=== PATIENT | female | born 1995 | race Caucasian/White ===

== ENCOUNTER 2018-04-27 18:14 | Emergency (ER) | payer SELFPAY ==
[2018-04-27 18:19] VITALS: RESP 16
[2018-04-27] MEDS ORDERED: ONDANSETRON 4 MG/2 ML VIAL IVP STA (19:00)
[2018-04-27] MEDS ORDERED: SODIUM CHLORIDE 0.9% 1,000 ML IV STA ×2 (19:00→21:47)
[2018-04-27 19:55] LABS: Basophils % (A) 0 %; Eosinophils # (A) 0.1 k/uL (0-0.7); Eosinophils % (A) 1 %; HCT 43.6 % (34.0-46.0); HGB 14.3 gm/dL (11.4-16.0); Lymphocytes # (A) 0.6 k/uL (1.0-4.8); Lymphocytes % (A) 7 %; MCH 31.9 pg (25.0-35.0); MCHC 32.8 g/dL (31.0-37.0); MCV 97.2 fL (80.0-100.0); Mean Platelet Volume 7.7; Monocytes # (A) 0.4 k/uL (0-1.0); Monocytes % (A) 4 %; Neutrophils # (A) 7.5 k/uL (1.3-7.7); Neutrophils % (A) 87 %; Platelet Count 138 k/uL (150-450); RBC 4.49 m/uL (3.80-5.40); RDW 13.2 % (11.5-15.5); WBC 8.6 k/uL (4.0-11.0)
[2018-04-27 20:46] LABS: Appearance,Urine Cloudy (Clear); Bacteria,Urine Rare /hpf; Bilirubin,Urine Negative (Negative); Blood,Urine Negative (Negative); Color,Urine Yellow; Glucose,Urine (UA) Negative (Negative); Hyaline Casts,Urine 3 /lpf (0-2); Ketones,Urine 4+ (Negative); Leukocyte Esterase,Urine Negative (Negative); Mucus,Urine Occasional /hpf; Nitrite,Urine Negative (Negative); PH, Urine 5.5 (5.0-8.0); Protein,Urine 1+ (Negative); RBC,Urine 1 /hpf (0-5); Specific Gravity,Urine 1.026 (1.001-1.035); Squamous Epithelial Cell,Urine 10 /hpf (0-4); Urobilinogen,Urine <2.0 mg/dL (<2.0); WBC,Urine 5 /hpf (0-5)
--- NOTE | 2018-04-27 21:04 | ED ---
General Adult HPI - General Chief complaint: Nausea/Vomiting/Diarrhea Stated complaint: vomiting Time Seen by Provider: 04/27/18 18:56 Source: patient, RN notes reviewed Mode of arrival: ambulatory Limitations: no limitations - History of Present Illness Initial comments: 22-year-old female presents to the emergency department for a chief complaint of nausea and vomiting 12 hours. Patient states she woke up this morning and felt nauseous. Patient states she has vomited about 15 times. She states she has not been able to keep down solids but has been drinking Gatorade without difficulty. Patient denies any abdominal pain. Patient denies any pain with urination or urinary frequency. Patient denies any fevers or chills at home. Patient does not recall eating anything questionable. Patient denies any medical history. Patient denies any abdominal surgeries. Patient states she last had a normal bowel movement 2 days ago. Patient denies any chance of . Patient has no other complaints at this time including shortness of breath, chest pain, abdominal pain, nausea or vomiting, headache, or visual changes. - Related Data Previous Rx's Medication Instructions Recorded Ondansetron [Zofran ODT] 4 mg PO Q8HR PRN #15 tab 04/27/18 Allergies Allergy/AdvReac Type Severity Reaction Status Date / Time No Known Allergies Allergy Verified 04/27/18 18:19 Review of Systems ROS Statement: Those systems with pertinent positive or pertinent negative responses have been documented in the HPI. ROS Other: All systems not noted in ROS Statement are negative. Past Medical History Past Medical History: No Reported History History of Any Multi-Drug Resistant Organisms: None Reported Past Surgical History: No Surgical Hx Reported Past Psychological History: No Psychological Hx Reported Smoking Status: Never smoker Past Alcohol Use History: Occasional Past Drug Use History: None Reported General Exam Limitations: no limitations General appearance: alert, in no apparent distress Head exam: Present: atraumatic, normocephalic, normal inspection Eye exam: Present: normal appearance. Absent: scleral icterus, conjunctival injection ENT exam: Present: normal exam, mucous membranes moist Neck exam: Present: normal inspection, full ROM. Absent: tenderness, meningismus, lymphadenopathy Respiratory exam: Present: normal lung sounds bilaterally. Absent: respiratory distress, wheezes, rales, rhonchi, stridor Cardiovascular Exam: Present: regular rate, normal rhythm, normal heart sounds. Absent: systolic murmur, diastolic murmur, rubs, gallop, clicks GI/Abdominal exam: Present: soft, normal bowel sounds, other (Negative obturator and psoas signs, negative Moore sign). Absent: distended, tenderness (No tenderness to palpation), guarding, rebound, rigid Neurological exam: Present: alert, oriented X3, CN II-XII intact Psychiatric exam: Present: normal affect, normal mood Skin exam: Present: warm, dry, intact, normal color. Absent: rash Course Vital Signs 04/27/18 04/27/18 18:15 21:21 Temperature 98.3 F 97.8 F Pulse Rate 91 92 Respiratory 16 16 Rate Blood Pressure 110/71 107/61 O2 Sat by Pulse 100 100 Oximetry Medical Decision Making - Medical Decision Making 22-year-old female presents to the emergency department for chief complaint of vomiting 12 hours. Patient is drinking Gatorade in the emergency department. Vitals are stable. Patient is afebrile and denies fevers at home. Vitals are stable. On exam patient does not have any abdominal tenderness. Denies any abdominal pain. Patient last had a normal bowel movement 2 days ago. On exam patient is well-appearing and does not appear toxic. No abdominal tenderness. No CVA tenderness or complaints of dysuria. X-ray was ordered to rule out obstruction/ X-ray showed no acute intra-abdominal abdominal pelvic process. CBC unremarkable. CMP did show an anion gap of 17 with an elevated BUNs likely related to starvation ketosis and dehydration. Patient also had urine ketones 4 + which is also likely related. No evidence of infection. HCG negative. Total bili 1.8, AST 52. Ultrasound of gallbladder was ordered which demonstrated no gallstones or dilated ducts. Patient's glucose was 65 and was given an amp of dextrose. Patient was given a liter of fluids as well. Patient also given Zofran. On reevaluation patient is feeling much better. She is drinking Gatorade and eating pudding and a sandwich. She states nausea has resolved at this time. She will follow up with primary care in 1-2 days. She will return to the emergency Department if she has any worsening symptoms or develops fevers. - Lab Data Result diagrams: 04/27/18 19:44 04/27/18 20:40 Lab Results 04/27/18 04/27/18 04/27/18 Range/Units 19:44 20:26 20:26 WBC 8.6 (4.0-11.0) k/uL RBC 4.49 (3.80-5.40) m/uL Hgb 14.3 (11.4-16.0) gm/dL Hct 43.6 (34.0-46.0) % MCV 97.2 (80.0-100.0) fL MCH 31.9 (25.0-35.0) pg MCHC 32.8 (31.0-37.0) g/dL RDW 13.2 (11.5-15.5) % Plt Count 138 L (150-450) k/uL Neutrophils % 87 % Lymphocytes % 7 % Monocytes % 4 % Eosinophils % 1 % Basophils % 0 % Neutrophils # 7.5 (1.3-7.7) k/uL Lymphocytes # 0.6 L (1.0-4.8) k/uL Monocytes # 0.4 (0-1.0) k/uL Eosinophils # 0.1 (0-0.7) k/uL Basophils # 0.0 (0-0.2) k/uL Sodium (137-145) mmol/L Potassium (3.5-5.1) mmol/L Chloride (98-107) mmol/L Carbon Dioxide (22-30) mmol/L Anion Gap mmol/L BUN (7-17) mg/dL Creatinine (0.52-1.04) mg/dL Est GFR (CKD-EPI)AfAm (>60 ml/min/1.73 sqM) Est GFR (CKD-EPI)NonAf (>60 ml/min/1.73 sqM) Glucose (74-99) mg/dL POC Glucose (mg/dL) (75-99) mg/dL POC Glu Principal Developer ID Calcium (8.4-10.2) mg/dL Total Bilirubin (0.2-1.3) mg/dL AST (14-36) U/L ALT (9-52) U/L Alkaline Phosphatase (38-126) U/L Total Protein (6.3-8.2) g/dL Albumin (3.5-5.0) g/dL Amylase (30-110) U/L Lipase (23-300) U/L Urine Color Yellow Urine Appearance Cloudy H (Clear) Urine pH 5.5 (5.0-8.0) Ur Specific [place] 1.026 (1.001-1.035) Urine Protein 1+ H (Negative) Urine Glucose (UA) Negative (Negative) Urine Ketones 4+ H (Negative) Urine Blood Negative (Negative) Urine Nitrite Negative (Negative) Urine Bilirubin Negative (Negative) Urine Urobilinogen <2.0 (<2.0) mg/dL Ur Leukocyte Esterase Negative (Negative) Urine RBC 1 (0-5) /hpf Urine WBC 5 (0-5) /hpf Ur Squamous Epith Cells 10 H (0-4) /hpf Urine Bacteria Rare H (None) /hpf Hyaline Casts 3 H (0-2) /lpf Urine Mucus Occasional H (None) /hpf Urine HCG, Qual Not Detected (Not Detectd) 04/27/18 04/27/18 Range/Units 20:40 22:38 WBC (4.0-11.0) k/uL RBC (3.80-5.40) m/uL Hgb (11.4-16.0) gm/dL Hct (34.0-46.0) % MCV (80.0-100.0) fL MCH (25.0-35.0) pg MCHC (31.0-37.0) g/dL RDW (11.5-15.5) % Plt Count (150-450) k/uL Neutrophils % % Lymphocytes % % Monocytes % % Eosinophils % % Basophils % % Neutrophils # (1.3-7.7) k/uL Lymphocytes # (1.0-4.8) k/uL Monocytes # (0-1.0) k/uL Eosinophils # (0-0.7) k/uL Basophils # (0-0.2) k/uL Sodium 139 (137-145) mmol/L Potassium 4.0 (3.5-5.1) mmol/L Chloride 102 (98-107) mmol/L Carbon Dioxide 20 L (22-30) mmol/L Anion Gap 17 mmol/L BUN 23 H (7-17) mg/dL Creatinine 0.60 (0.52-1.04) mg/dL Est GFR (CKD-EPI)AfAm >90 (>60 ml/min/1.73 sqM) Est GFR (CKD-EPI)NonAf >90 (>60 ml/min/1.73 sqM) Glucose 62 L (74-99) mg/dL POC Glucose (mg/dL) 65 L (75-99) mg/dL POC Glu Principal Developer ID [employer] Calcium 9.6 (8.4-10.2) mg/dL Total Bilirubin 1.8 H (0.2-1.3) mg/dL AST 52 H (14-36) U/L ALT 40 (9-52) U/L Alkaline Phosphatase 84 (38-126) U/L Total Protein 8.1 (6.3-8.2) g/dL Albumin 5.3 H (3.5-5.0) g/dL Amylase 52 (30-110) U/L Lipase 109 (23-300) U/L Urine Color Urine Appearance (Clear) Urine pH (5.0-8.0) Ur Specific [place] (1.001-1.035) Urine Protein (Negative) Urine Glucose (UA) (Negative) Urine Ketones (Negative) Urine Blood (Negative) Urine Nitrite (Negative) Urine Bilirubin (Negative) Urine Urobilinogen (<2.0) mg/dL Ur Leukocyte Esterase (Negative) Urine RBC (0-5) /hpf Urine WBC (0-5) /hpf Ur Squamous Epith Cells (0-4) /hpf Urine Bacteria (None) /hpf Hyaline Casts (0-2) /lpf Urine Mucus (None) /hpf Urine HCG, Qual (Not Detectd) Disposition Clinical Impression: Nausea & vomiting Disposition: HOME SELF-CARE Condition: Good Instructions: Acute Nausea and Vomiting (ED) Additional Instructions: Please take Zofran as needed for nausea. Please drink plenty of fluids and eat bland foods such as bananas, rice, applesauce, toast. Follow-up with primary care in 1-2 days. Return to the emergency department if you have any worsening symptoms. Prescriptions: Ondansetron [Zofran ODT] 4 mg PO Q8HR PRN #15 tab PRN Reason: Nausea Is patient prescribed a controlled substance at d/c from ED?: No Referrals: Hakeem Molina MD [Primary Care Provider] - 1-2 days Time of Disposition: 23:36
[2018-04-27 21:22] LABS: ALT 40 U/L (9-52); AST 52 U/L (14-36); Albumin 5.3 g/dL (3.5-5.0); Alkaline Phosphatase 84 U/L (38-126); Amylase 52 U/L (30-110); Anion Gap 17 mmol/L; Blood Urea Nitrogen 23 mg/dL (7-17); Calcium 9.6 mg/dL (8.4-10.2); Carbon Dioxide 20 mmol/L (22-30); Chloride 102 mmol/L (98-107); Glucose 62 mg/dL (74-99); Lipase 109 U/L (23-300); Sodium 139 mmol/L (137-145); Total Bilirubin 1.8 mg/dL (0.2-1.3); Total Protein 8.1 g/dL (6.3-8.2)
--- NOTE | 2018-04-27 21:29 | XR ---
EXAMINATION TYPE: XR KUB DATE OF EXAM: 04/27/2018 9:11 PM CLINICAL HISTORY: Abdominal pain TECHNIQUE: 2 upright KUB image of the abdomen is obtained. COMPARISON: None. FINDINGS: No pneumoperitoneum or dilated large or small bowel. No abnormal intra-abdominal or pelvic calcifications. No visceromegaly. Osseous structures are intact. Limited evaluation pneumothorax unre markable. IMPRESSION: No acute intra-abdominal pelvic process.
[2018-04-27] MEDS ORDERED: DEXTROSE 50%-WATER 50 ML SYRINGE IVP STA (21:47)
[2018-04-27 22:42] LABS: Glucose,Whole Blood 65 mg/dL (75-99)
--- NOTE | 2018-04-27 22:51 | US ---
EXAMINATION TYPE: US gallbladder DATE OF EXAM: 04/27/2018 COMPARISON: NONE CLINICAL HISTORY: Pain. Vomiting x 1 day EXAM MEASUREMENTS: Liver Length: 12.2 cm Gallbladder Wall: 0.1 cm CBD: 0.3 cm Right Kidney: 10.1 x 4.9 x 4.5 cm Pancreas: wnl Liver: wnl Gallbladder: wnl Evidence for sonographic Moore's sign: no CBD: wnl Right Kidney: wnl IMPRESSION: Normal exam. No gallstones or dilated ducts.
[2018-04-27 23:58] VITALS: BP 111/72; PULSE 82; TEMP 98.4
== END 2018-04-27 23:56 | disposition home or self-care (01) ==
LOC: EC 18:14
DX: R11.2 Nausea with vomiting, unspecified (principal)
CPT/HCPCS: 36415; 80053; 82150; 83690; 85025; 81001; 81025; 74018; 76705; 99284; 96374; 96375; 96361 ×3; J2405

== ENCOUNTER → 2023-01-16 | Outpatient (CLI) | payer OTHER ==
--- NOTE | 2023-01-16 15:15 | US ---
EXAMINATION TYPE: US pelvic complete DATE OF EXAM: 01/16/2023 COMPARISON: NONE CLINICAL INDICATION: Female, 27 years old with history of K58.9 IRRITABLE BOWEL SYNDROME WITHOUT DIAR JUNIOR; Irregular menses, cramping TECHNIQUE: Transabdominal (TA). Date of LMP: unknown EXAM MEASUREMENTS: Uterus: 6.8 x 4.0 x 3.7 cm Endometrial Stripe: 1.2 cm Right Ovary: 4.7 x 4.5 x 3.1 cm Left Ovary: 2.5 x 2.0 x 1.8 cm 1. Uterus: Anteverted appears wnl 2. Endometrium: appears wnl 3. Right Ovary: cystic area = 3.9 x 3.0 x 3.4cm simple appearing. 4. Left Ovary: follicles noted 5. Bilateral Adnexa: wnl 6. Posterior cul-de-sac: wnl IMPRESSION: 1. Endometrium within normal limits for thickness. 2. Right ovarian cyst measuring up to 3.9 cm. No follow-up is recommended for simple cyst in a preme nopausal patient.
== END | disposition home or self-care (01) ==
LOC: RADUSWWP 14:18
PROVIDERS: ATTEND Family Medicine
DX: K58.9 Irritable bowel syndrome, unspecified (principal); N83.201 Unspecified ovarian cyst, right side; N92.6 Irregular menstruation, unspecified; Z78.0 Asymptomatic menopausal state
CPT/HCPCS: 76856